=== PATIENT | male | born 1965 | race Caucasian/White ===

== ENCOUNTER 2016-03-21 14:47 | Emergency (ER) | payer OTHER ==
--- NOTE | 2016-03-21 15:31 | ER Document Report ---
ED Medical Screen (RME) - General Stated Complaint: RIGHT SIDE SWELLING Notes: right lower quadrant swelling with intermittent pain no erythema also has a right inguinal hernia
[2016-03-21 20:19] LABS: ABSOLUTE BASOPHILS # (AUTO) 0.1 10^3/uL (0.0-0.2); ABSOLUTE EOSINOPHILS # (AUTO) 0.5 10^3/uL (0.0-0.6); ABSOLUTE LYMPHOCYTES (AUTO) 3.8 10^3/uL (0.5-4.7); ABSOLUTE MONOCYTES (AUTO) 0.6 10^3/uL (0.1-1.4); BASOPHILS % (AUTO) 0.7 % (0-2); EOSINOPHILS % (AUTO) 5.8 % (0-6); HEMATOCRIT 45.1 % (37.9-51.0); HEMOGLOBIN 15.3 g/dL (13.5-17.0); HGB HCT DIFFERENCE 0.8; LYMPHOCYTES % (AUTO) 41.8 % (13-45); MEAN CORPUSCULAR HEMOGLOBIN 31.8 pg (27.0-33.4); MEAN CORPUSCULAR HGB CONC 33.8 g/dL (32.0-36.0); MEAN CORPUSCULAR VOLUME 94 fl (80-97); MONOCYTES % (AUTO) 7.1 % (3-13); RED BLOOD COUNT 4.79 10^6/uL (4.35-5.55); RED CELL DISTRIBUTION WIDTH 12.6 % (11.5-14.0); SEGMENTED NEUTROPHILS % (AUTO) 44.6 % (42-78); WHITE BLOOD COUNT 9.1 10^3/uL (4.0-10.5)
[2016-03-21 20:20] LABS: APPEARANCE,URINE CLEAR; BILIRUBIN,URINE NEGATIVE (NEGATIVE); GLUCOSE, URINE NEGATIVE (NEGATIVE); KETONES,URINE NEGATIVE (NEGATIVE); LEUKOCYTE ESTERASE,URINE NEGATIVE (NEGATIVE); NITRITE,URINE NEGATIVE (NEGATIVE); PROTEIN,URINE NEGATIVE (NEGATIVE); URINE SPECIFIC GRAVITY 1.013; UROBILINOGEN,URINE NEGATIVE mg/dL (<2.0)
[2016-03-21 20:35] LABS: ALANINE AMINOTRANSFERASE 61 U/L (21-72); ALBUMIN 4.9 g/dL (3.5-5.0); ALKALINE PHOSPHATASE 55 U/L (38-126); ANION GAP 16 (5-19); ASPARTATE AMINO TRANSFERASE 42 U/L (17-59); BILIRUBIN,TOTAL 1.3 mg/dL (0.2-1.3); BLOOD UREA NITROGEN 11 mg/dL (7-20); CALCIUM 10.4 mg/dL (8.4-10.2); CARBON DIOXIDE 29 mmol/L (22-30); CHLORIDE 99 mmol/L (98-107); CREATININE RESULT 0.86 mg/dL (0.52-1.25); GLUCOSE 96 mg/dL (75-110); LIPASE 294.6 U/L (23-300); POTASSIUM 4.3 mmol/L (3.6-5.0); TOTAL PROTEIN 8.2 g/dL (6.3-8.2)
--- NOTE | 2016-03-21 21:20 | ER Document Report ---
[id number] TRAVEL OUTSIDE OF THE [place] IN LAST 30 DAYS: No - HPI Patient complains to provider of: Other - abdominal swelling Onset: Other - x3-4 days Location: Other - right lateral portion of abdomen Similar symptoms previously: No Recently seen / treated by doctor: No <DOUGLAS YARBROUGH - Last Filed: 03/21/16 23:06> <CARINA KONG - Last Filed: 03/24/16 01:23> - General Chief Complaint: Abdominal Swelling Stated Complaint: RIGHT SIDE SWELLING Notes: Patient is a 50 year old male that presents to the emergency department today with complaints of abdominal swelling. Patient states he noticed the abdominal swelling for 3-4 days. Patient states he has absolutely no pain with the swelling. Patient states yesterday he noticed a small bruise in the central area of the swelling. Patient states he is nauseated but he denies vomiting or diarrhea. (DOUGLAS YARBROUGH) - Related Data Allergies/Adverse Reactions: No Known Allergies Allergy (Verified 03/21/16 15:29) Past Medical History - General Information source: Patient - Social History Smoking Status: Unknown if Ever Smoked Chew tobacco use (# tins/day): Yes Frequency of alcohol use: Occasional Drug Abuse: None Lives with: Family Family History: Reviewed & Not Pertinent Patient has suicidal ideation: No Patient has homicidal ideation: No - Medical History Medical History: Negative Surgical Hx: Negative - Immunizations Hx Diphtheria, Pertussis, Tetanus Vaccination: Yes <DOUGLAS YARBROUGH - Last Filed: 03/21/16 23:06> Review of Systems - Review of Systems Constitutional: No symptoms reported EENT: No symptoms reported Cardiovascular: No symptoms reported Respiratory: No symptoms reported Gastrointestinal: See HPI, Nausea, Other - abdominal swelling, denies any pain associated with the swelling. denies: Diarrhea, Vomiting Genitourinary: No symptoms reported Male Genitourinary: No symptoms reported Musculoskeletal: No symptoms reported Skin: No symptoms reported Hematologic/Lymphatic: No symptoms reported Neurological/Psychological: No symptoms reported -: Yes All other systems reviewed and negative <DOUGLAS YARBROUGH - Last Filed: 03/21/16 23:06> Physical Exam <DOUGLAS YARBROUGH - Last Filed: 03/21/16 23:06> <CARINA KONG - Last Filed: 03/24/16 01:23> - Vital signs Vitals: Temp Pulse Resp BP Pulse Ox 98.2 F 83 20 146/98 H 96 03/21/16 15:30 03/21/16 15:30 03/21/16 15:30 03/21/16 15:30 03/21/16 15:30 (DOUGLAS YARBROUGH) (CARINA KONG) - Notes Notes: Physical Exam: General: Alert, appears well. HEENT: Normocephalic. Atraumatic. PERRL. Extraocular movements intact. Oropharynx clear. Neck: Supple. Non-tender. Respiratory: No respiratory distress. Clear and equal breath sounds bilaterally. Cardiovascular: Regular rate and rhythm. Abdominal: Non-tender. No distension. Normal Bowel Sounds. Abdominal wall contusion to the right lateral abdomen with surrounding swelling. Back: Non-tender. No deformity or step off. Extremities: Moves all four extremities. Upper extremities: Normal inspection. Normal ROM. Lower extremities: Normal inspection. No edema. Normal ROM. Neurological: Normal cognition. AAOx4. Normal speech. Psychological: Normal affect. Normal Mood. Skin: Warm. Dry. Normal color. (DOUGLAS YARBROUGH) Course - Laboratory Result Diagrams: 03/21/16 20:05 03/21/16 20:05 <DOUGLAS YARBROUGH - Last Filed: 03/21/16 23:06> - Laboratory Result Diagrams: 03/21/16 20:05 03/21/16 20:05 <CARINA KONG - Last Filed: 03/24/16 01:23> - Re-evaluation Re-evalutation: 03/22/16 00:35 I personally performed the services described in the documentation, reviewed and edited the documentation which was dictated to my scribe in my presence, and it accurately records my words and actions. . We will DC close PCP follow-up and discuss reasons for ED return sooner Presents emergency Department with right anterior abdominal wall swelling. Says is not bothering him he just noticed 2 days ago that was swollen noticed a bruise he denies injuring himself. No nausea vomiting abdominal pain diarrhea fevers chills chest pain shows breath flank pain urinary symptoms on exam he has a small bruise does look a little swollen to the anterior abdominal wall no guarding rebound rigidity acute laboratory evaluation normal acute CT with IV contrast negative. Patient with contusion unknown etiology well-appearing nontoxic serial abdominal examinations negative. We will DC close PCP follow- up and discuss reasons for ED return sooner (CARINA KONG) - Vital Signs Vital signs: Temp Pulse Resp BP Pulse Ox 98.3 F 80 17 130/78 H 99 03/21/16 22:55 03/21/16 22:55 03/21/16 22:55 03/21/16 22:55 03/21/16 22:55 (DOUGLAS YARBROUGH) (CARINA KONG) - Laboratory Laboratory results interpreted by me: 03/21/16 20:05 Calcium 10.4 H (DOUGLAS YARBROUGH) (CARINA KONG) Discharge <DOUGLAS YARBROUGH - Last Filed: 03/21/16 23:06> <CARINA KONG - Last Filed: 03/24/16 01:23> - Discharge Clinical Impression: Abdominal wall contusion Qualifiers: Encounter type: initial encounter Qualified Code(s): S30.1XXA - Contusion of abdominal wall, initial encounter Condition: Stable Disposition: HOME, SELF-CARE Additional Instructions: Contusion Your injury has resulted in a contusion -- a crushing of the deep tissues. No injury to important structures was detected during the physician's exam. Contusions vary in the amount of pain they cause, and in the length of time required for healing. Typically, the area will become bruised, and will remain painful to touch for two or three weeks. However, most patients are back to working and playing within a few days. After the initial period of rest and cold-packs, your symptoms (together with the doctor's recommendations) will determine how rapidly you can get back to full activity. Usually this means "do what feels okay, but don't do things that hurt." If re-examination was recommended, it's important to follow up as instructed. Call the doctor or return any time if pain increases, if swelling becomes severe, if you develop numbness or weakness in an injured extremity, or if any other alarming symptoms occur. Referrals: [facility] [Provider Group] - Follow up as needed (in 2-3 days return to er sooner for increasing worsening or new symptoms) Scribe Documentation <DOUGLAS YARBROUGH - Last Filed: 03/21/16 23:06> <DILAN,CARINA - Last Filed: 03/24/16 01:23> - Scribe Written by Porshaibray:: DOUGLAS Agustin)
[2016-03-21 23:04] VITALS: BP 130/78
== END 2016-03-21 23:00 | disposition home or self-care (01) ==
LOC: ER 14:47
DX: S30.1XXA Contusion of abdominal wall, initial encounter (principal); X58.XXXA Exposure to other specified factors, initial encounter; R11.0 Nausea; R19.00 Intra-abdominal and pelvic swelling, mass and lump, unspecified site; Z72.0 Tobacco use
CPT/HCPCS: 36415; 74177; 80053; 81001; 83690; 85025; 99284